=== PATIENT | male | born 1985 | race Caucasian/White ===

== ENCOUNTER 2023-06-14 08:37 | Outpatient (CLI) | payer OTHER, SELFPAY | END 2023-06-14 08:38 | disposition home or self-care (01) | PROVIDERS: PCP Nurse Practitioner Family; Visit Provider Family Medicine | DX: Z13.220 Encounter for screening for lipoid disorders (principal); Z13.1 Encounter for screening for diabetes mellitus; Z86.79 Personal history of other diseases of the circulatory system | CPT/HCPCS: 80048; 80061 ==